=== PATIENT | male | born 2000 | race Asian ===

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

== ENCOUNTER 2019-01-09 23:56 | Emergency (ER) | payer BC ==
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
[2019-01-10] MEDS ORDERED: IOPAMIDOL (ISOVUE-300) 100 ML BTL ONE (00:27)
[2019-01-10 01:55] VITALS: BP 99/53
== END 2019-01-10 01:55 | disposition home or self-care (01) ==
DX: T71.9XXA Asphyxiation due to unspecified cause, initial encounter (principal); Y93.83 Activity, rough housing and horseplay
CPT/HCPCS: 82435-PO; 82565-PO; 82947-PO; 84132-PO; 84295-PO; 84520-PO; 85014-ER; Q9967